=== PATIENT | male | born 1995 | race Caucasian/White ===

== ENCOUNTER 2019-02-07 12:45 | Emergency (ER) | payer BC ==
[2019-02-07 12:58] VITALS: BP 148/93
--- NOTE | 2019-02-07 14:10 | UC ---
Cardiac HPI - HPI Summary HPI Summary: C/O HEART "PALPITATIONS" XA COUPLE MONTHS, STATES WHEN HE HAS THIS THERE IS SOME CHEST PRESSURE BUT IS NOT HAVING SYMPTOMS NOW STATES HE IS VERY STRESSED IN LIFE - History of Current Complaint Chief Complaint: UCGeneralIllness Stated Complaint: CHEST PAIN X 2 MONTHS Time Seen by Provider: 02/07/19 13:47 Pain Intensity: 0 - Allergy/Home Medications Allergies/Adverse Reactions: Allergies Allergy/AdvReac Type Severity Reaction Status Date / Time seasonal Allergy Congestion Uncoded 07/31/18 12:50 Home Medications: Home Medications NK [No Home Medications Reported] 02/07/19 [History Confirmed 02/07/19] PMH/Surg Hx/FS Hx/Imm Hx - Surgical History Surgical History: Yes Surgery Procedure, Year, and Place: Jaw x 2, screws removed 06/26/18 - Family History Known Family History: Positive: Other - no sick contacts - Social History Alcohol Use: Weekly Substance Use Type: None Smoking Status (MU): Light Every Day Tobacco Smoker - Immunization History Vaccination Up to Date: Yes Physical Exam Vital Signs: Initial Vital Signs Temp 98.1 F 02/07/19 12:53 Pulse 70 02/07/19 12:53 Resp 15 02/07/19 12:53 BP 148/93 02/07/19 12:53 Pulse Ox 99 02/07/19 12:53 Discharge - Discharge Plan Condition: Stable Disposition: HOME Patient Education Materials: Heart Palpitations (ED) Referrals: Ginny Salas PA [Primary Care Provider] - Additional Instructions: Family counseling services Here is a referral to counseling services fro your anxiety. I recommend getting an appointment as soon as you can. I have included a list of primary providers to contact and get a follow up with IF YOU EXPERIENCE ANY MORE CHEST PAIN OR PRESSURE PLEASE GO STRAIGHT TO THE ER FOR FURTHER WORKUP. REST, HYDRATE WITH NON CAFFINATED BEVERAGE - Billing Disposition and Condition Condition: STABLE Disposition: Home
== END 2019-02-07 14:16 | disposition home or self-care (01) ==
LOC: UCCORT 12:45
DX: R07.9 Chest pain, unspecified (principal); F17.290 Nicotine dependence, other tobacco product, uncomplicated; F43.9 Reaction to severe stress, unspecified; Z91.09 Other allergy status, other than to drugs and biological substances
CPT/HCPCS: 99212; G0463